=== PATIENT | female | born 1955 | race Caucasian/White ===

== ENCOUNTER 2017-08-31 14:45 | Observation (INO) | payer MEDICARE ==
[2017-08-31 15:39] LABS: Hematocrit 44.1 % (37.0-47.0); Hemoglobin 14.5 gm/dL (12.5-16.0); Mean Cell Volume 91.1 fl (78-100); Mean Corpuscular Hgb Conc 32.9 g/dl (32-36); Neutrophil # 5.8 K/mm3 (1.3-6.0); Neutrophil % 74.2 % (42-75.0); Platelet Count 211 K/mm3 (150-450); Red Blood Count 4.84 M/mm3 (4.2-5.4); Red Cell Distribution Width 13.3 % (11.5-14.0); White Blood Count 7.8 K/mm3 (4.0-10.5)
[2017-08-31 15:44] LABS: Prothrombin Time (Patient) 10.1 Seconds (9.0-11.0)
[2017-08-31 15:49] LABS: INR 1.01 INR (0.90-1.10)
[2017-08-31 15:51] LABS: Albumin * 3.4 gm/dl (3.4-5.0); Anion Gap 10.2 mmol/L (6.8-13.8); BUN/Creatinine Ratio 21.3 (9.0-21.6); Bilirubin, Total 0.4 mg/dL (0.0-1.1); Calcium * 8.8 mg/dL (7.9-10.9); Carbon Dioxide 29.2 mmol/L (24-32.6); Potassium 4.4 mmol/L (3.4-4.6); Total Protein 7.6 gm/dL (6.2-8.2); Troponin I 0.024 ng/ml (0.00-0.10)
--- NOTE | 2017-08-31 16:13 | ERNOTE ---
Headache ER HPI - Narrative Date of Service: 08/31/17 - General Presenting Symptoms: headache, other - speech problems Time Seen by Provider: 08/31/17 15:21 Source: patient Exam Limitations: no limitations - Immun/Allergies/Home Medications Immunizations: IMMUNIZATION HX Immunizations Up to Date Yes History of Influenza Vaccine Yes Hx Pneumococcal Vaccination No Allergies/Adverse Reactions: Allergies Sulfa (Sulfonamide Antibiotics) [Sulfa(Sulfonamide Antibiotics)] Allergy (Severe , Verified 08/31/17 14:59) Hives Home Medications: HOME MEDICATIONS Aspirin [Aspirin Enteric Coated] 325 mg PO DAILY #0 tablet. 03/08/14 [Last Taken Unknown] Cholecalciferol (Vitamin D3) [Vitamin D3] 2,000 unit PO DAILY 09/20/16 [Last Taken Unknown] Glimepiride [Amaryl] 4 mg PO DAILY 09/20/16 [Last Taken Unknown] Metoprolol Tartrate [Lopressor] 100 mg PO HS 09/20/16 [Last Taken Unknown] Omeprazole [Prilosec] 20 mg PO DAILY 09/20/16 [Last Taken Unknown] Sertraline HCl [Zoloft] 100 mg PO DAILY 09/20/16 [Last Taken Unknown] Albuterol Sulfate/Ipratropium [Duoneb 2.5-0.5MG/3ML Soln] 3 ml IH QID PRN #30 nebu 09/22/16 [Last Taken Unknown] LORazepam [Ativan] 0.5 mg PO BID PRN 08/31/17 [Last Taken Unknown] metFORMIN HCL [Metformin HCl ER] 1,000 mg PO BID 08/31/17 [Last Taken Unknown] traMADol HCL [Tramadol HCl] 50 mg PO BID 08/31/17 [Last Taken Unknown] - History of Present Illness Narrative: "trouble talking". Patient presents by ambulance with speech problems. She relates that this morning when she woke up she had a headache and did notice some problems with her speech. She relates this was worse about 9am and has been constant ever since. She has Hx of prior stroke but denies new weakness in her arm or leg. Took her ASA today. She has also been feeling SOB for a day or so. No CP. No abdominal pain. Her Sx are 9 hours old. Not in a therapeutic stroke window. Timing of Headache: cannot pinpoint onset Context Headache: Present: new onset Quality: Present: achy Modifying Factors - (Improves): Reports: other - nothing Modifying Factors - (Worsens): Reports: other - nothing Associated Symptoms: Reports: speech problems. Denies: fever/chills, vomiting, vision changes, loss of consciousness Prior Treament: Denies: recently hospitalized Review of Systems - Review of Systems Constitutional: Absent: fever EYE: Absent: vision changes Respiratory: Present: shortness of breath Cardiology: Absent: chest pain Gastrointestinal/Abdominal: Absent: abdominal pain Genitourinary: Absent: dysuria Musculoskeletal: Present: no symptoms reported Skin: Absent: rash Neurological: Present: See HPI All Other Systems: All systems neg except as marked - Patient's Past Medical History Patient History - Medical: Anxiety, Diabetes Type 2, Depression, Obesity, Other Patient History - Cardiac/Respiratory: Bronchitis, CHF, COPD, CVA/Stroke, Hypertension Patient History - Cancer: No Hx of Cancer Patient History - Surgical Procedures: Total Knee Replacement Patient History - Other: None - Family History Mother Family History - Medical: Diabetes Type 2 Family History - Cardiac/Respiratory: CVA/Stroke, Myocardial Infarction - Social History Abuse History: No History of abuse Psych History: No pertinent hx Smoking Status: Smoker, status unknown - Immunizations Immunizations Up to Date: Yes Hx Pneumococcal Vaccination: No History of Influenza Vaccine: Yes Physical Exam - Physical Exam General Appearance: Present: alert, no apparent distress Head Exam: Present: normal inspection, no evidence of injury Eye Exam: Normal inspection: bilateral, PERRL: bilateral Ears, Nose, Throat: Present: normal ENT inspection Neck: Present: normal inspection Respiratory: Present: no respiratory distress, normal breath sounds, no accessory muscle use, lungs clear Cardiovascular/Chest: Present: regular rate, rhythm, normal peripheral pulses Gastrointestinal/Abdominal: Present: normal bowel sounds, nontender, soft Back Exam: Absent: CVA tenderness (R), CVA tenderness (L) Extremity Exam: Present: other - no deformity Neurological Exam: Present: alert, other - she has mild dysarthria. Minimal left facial droop. I do not find any extremity weakness or dysmetria that is not C/W her chronic problems. No new weakness that I can find. Skin Exam: Present: normal color, warm/dry ED Progress - Results and Orders Patient's Lab Results:: I have reviewed the patient's lab results. - Vital Signs Patient's Vital Signs:: I have reviewed the patient's vital signs. Vital Signs: Vital Signs 08/31/17 08/31/17 08/31/17 14:51 15:11 15:31 Temperature 36.7 C Pulse Rate 71 71 89 Respiratory 16 20 15 Rate Blood Pressure 140/75 143/80 155/80 O2 Sat by Pulse 94 94 Oximetry - EKG EKG: NSR EKG read: Interp. by me EKG Comments: NSR rate 68. non-specific ST/T wave changes, no clear evidence of STEMI - X-Ray X-Ray #1 X-Ray: chest Interpretation: Interp. by me X-ray Comments: I reviewed official radiology report - CT/Ultrasound CT/Ultrasound Narrative: I reviewed official radiology report for HCT - Progress/Reassessment Chief Complaint: Headache Progress Note-Subjective: 08/31/17 16:11 Patient appeaers to have had mild stroke affecting speech primarily. She is on ASA and has taken her ASA. She is not in a therapeutic window as her Sx are 9 hours old. not a tPA candidate. I spoke with Dr Rios who will admit with MRI in the am. Pt agreeable. Departure Clinical Impression: Stroke-like symptom - Departure Disposition: [facility] Condition: Stable Referrals: Stu Rios MD [Primary Care Provider] -
[2017-08-31] MEDS ORDERED: CLOPIDOGREL BISULFATE 75 MG TABLET PO ONE (17:22)
[2017-08-31] MEDS ORDERED: ALBUTEROL SULFATE/IPRATROPIUM 3 ML NEBU IH PRN (17:23)
[2017-08-31] MEDS ORDERED: LORazepam 0.5 MG TABLET PO PRN (17:23)
[2017-08-31] MEDS ORDERED: ROSUVASTATIN CALCIUM 20 MG TABLET PO ONE (18:00)
--- NOTE | 2017-08-31 18:09 | PN ---
Progess Note - Interim Narrative: 08/31/17 17:49 61-year-old WF with a history of HTN with tachycardia, HLD, poorly controlled T2DM, morbid obesity[BMI 42.0], prior stroke[ small focal infarct in RT periventricular area] in 2013 who came to the ER because of inability to speak since earlier this morning. Patient was seen in the office on 08/29/17 and labs from 08/19/17 [LDL 156, cholesterol 239, A1c 10.2% averaging 254 mg/dL] were reviewed w/ her. Patient refuses to go on insulin and cholesterol meds. Patient came to the ER in the afternoon for further evaluation. Speech n has markedly improved and patient will be admitted into observation for monitoring of neurological status. Patient does agree to take Crestor 20 mg and will be started on Lantus 15 units at bedtime. No other neurological defects identified. Normally ambulates with a walker. Patient was examined, reconciliation of medications were done and labs were reviewed. EKG normal sinus rhythm, PRWP. MRI of head, 2-D echo and US carotids have been ordered.
[2017-08-31] MEDS ORDERED: METOPROLOL SUCCINATE 100 MG TABLET.SA PO SCH (21:00)
[2017-08-31] MEDS ORDERED: INSULIN GLARGINE,HUM.REC.ANLOG 100 UNITS/ML VIAL SC ONE (21:00)
[2017-08-31 21:16] LABS: Urine Bilirubin Negative (NEGATIVE); Urine Blood Negative /ul (NEGATIVE); Urine Ketone Negative (NEGATIVE); Urine Nitrite Negative (NEGATIVE); Urine Protein Negative (NEGATIVE); Urine Specific Gravity 1.025 SP.GR. (1.005-1.010); Urine Urobilinogen Normal (NORMAL); Urine pH 5.5 pH (5.0-7.0)
[2017-08-31 21:30] LABS: Urine Appearance Clear; Urine Color Yellow; Urine RBC None Seen /hpf (0-5); Urine WBC 0-5 /hpf (0-5)
[2017-08-31 21:31] LABS: Urine Bacteria TRACE
[2017-08-31] MEDS ORDERED: ACETAMINOPHEN 500 MG TABLET PO ONE (23:05)
[2017-09-01] MEDS: FAMOTIDINE 20 MG TABLET PO SCH ×2 (07:55→17:27)
[2017-09-01] MEDS ORDERED: LOSARTAN POTASSIUM 50 MG TABLET PO SCH (08:00)
[2017-09-01] MEDS ORDERED: CLOPIDOGREL BISULFATE 75 MG TABLET PO SCH (09:00)
[2017-09-01] MEDS ORDERED: SERTRALINE HCL 100 MG TABLET PO SCH (09:00)
[2017-09-01] MEDS ORDERED: ACETAMINOPHEN 325 MG TABLET PO PRN (14:53)
[2017-09-01 15:36] VITALS: BP 160/96
--- NOTE | 2017-09-01 16:56 | DS ---
(1) Left sided lacunar infarction Diagnosis(s): Calero radiata; old lacunar infarcts in the LT thalamus, LT basal ganglia Problem: Acute (2) Hypertension Problem: Chronic Qualifiers: Hypertension type: essential hypertension Qualified Code(s): I10 - Essential (primary) hypertension (3) Diabetes mellitus out of control Diagnosis(s): A1c 10.2[254 mg/dL] 08/12. Problem: Chronic Qualifiers: Diabetes mellitus type: type 2 (4) Hyperlipidemia Diagnosis(s): Chol 239 TG 211 HDL 42 LDL 156[08/19/17]. Problem: Chronic (5) Morbid obesity Diagnosis(s): BMI-42.0 Problem: Chronic Description of Stay: DATE OF ADMISSION: 08/31/2017. DATE OF DISCHARGE: 09/01/2017. DIAGNOSTICS: CT HEAD W/O 08/31/17. 2-D ECHO WITH BUBBLE STUDY 09/01/17. US CAROTIDS 09/01/17. MRI HEAD W/O111/02/16. DISCHARGE SUMMARY: Re Mitchell is a 62-year-old WF with a H/O HTN, HLD, poorly controlled T2 DM, morbid obesity[BMI 42.0], prior stroke in 2013 who woke up with difficulty in talking on 08/31/17. This gradually worsened with occasional aphasia and patient came to ER for evaluation at [address] W/O: 08/31/17: Age-related cortical atrophy and periventricular white matter chronic ischemic changes are present. Intracranial atherosclerotic calcifications noted. Stable likely old lacunar infarcts in the left thalamus and left basal ganglia region. Lateral ventricular prominence seen. No acute intracranial hemorrhage or mass effect. She was seen at approximately 1730 hours when his speech had markedly improved. She had no other neurological deficit. Patient was seen in the office on and labs from 08/19/17 [LDL 156, cholesterol 239, A1c 10.2% averaging 254 mg /dL] were reviewed w/ her. She did not want any intervention at the office visit. Patient did agree to take rosuvastatin, clopidogrel and insulin to lower secondary risk factors for stroke while in the hospital. EKG: NSR, PRWP, no acute changes. Patient was started on clopidogrel 75 mg a day, rosuvastatin 20 mg a day, losartan 50 mg in the morning and Lantus 15 units at bedtime. Glimepiride and aspirin were discontinued. US carotids: Mild to moderate atherosclerotic disease RT greater than LT. No hemodynamically significant stenosis is identified. MRI brain W/O: 09/01/17: Moderate diffuse atrophy, microvascular ischemic changes including remote lacunar infarcts. Acute lacunar infarct within the left calero radiata. Echo results are pending at the time of dictation. Patient is being discharged in a stable condition at approximately 6 PM on 09/01. Greater than 30 minutes was spent with the patient including plan of care, reconciliation of medications, preparing and dictating discharge summary. [ Procedures Performed: none Results and Findings: Laboratory Tests 08/31/17 15:36 WBC 7.8 Hgb 14.5 Hct 44.1 Plt Count 211 08/31/17 15:36 Plasma Sodium 137 Potassium 4.4 Chloride 99 Carbon Dioxide 29.2 BUN 20 Creatinine 0.94 Est GFR (Non-Af Amer) 65 Random Glucose 270 H Calcium Adj for Albumin 9.0 Total Bilirubin 0.4 AST 18 ALT 31 Alkaline Phosphatase 130 Troponin I 0.024 Total Protein 7.6 Albumin 3.4 Discharge Disposition: Home self care Disposition: Home self-care Condition: Undetermined Discharge Activity: Activity as tolerated Discharge Diet: Consistent carbs - protein rich snack at bedtime - azeri yogurt / 2 oz nuts, cheese and crackers/slice bread w/peanut butter., High Fiber Referrals: Stu Rios MD [Primary Care Provider] - Problem Oriented Discharge Instructions to Patient/Family: Insulin Storage and Care, Insulin Treatment for Diabetes, Stroke Prevention, [id number], How and Where to Give Subcutaneous Insulin Injections, Adult, Blood Glucose Monitoring, Adult Additional Patient Instructions (free text): MEDS DISCONTINUED/DOSES CHANGED: Aspirin. Glimepiride. Omeprazole. NEW MEDICATIONS: Clopidogrel 75 mg daily. Famotidine 20 mg twice a day 30 minutes before meals[instead of omeprazole]. Lantus SubQ 25 units at bedtime. Rosuvastatin 20 mg daily. Losartan 50 mg daily in AM. Take insulin approximately at the same time in the evening. Document blood sugars in a staggered fashion: 1st day breakfast and supper; 2nd day: Lunch and bedtime. Documented BP once a day after being seated for 10 minutes and without caffeine for one hour. Tramadol can be alternated with Tylenol every 6H for pain. Try to obtain as much exercise as possible. Appt with Dr. Ramirez on 09/07/17 +/-2days. Prescriptions (Any new or edited meds): Clopidogrel Bisulfate [Plavix] 75 mg PO DAILY #30 tablet Famotidine [Pepcid] 20 mg PO BIDAC #60 tablet Insulin Glargine,Hum.rec.anlog [Lantus] 25 units SC HS #1 vial Losartan Potassium [Cozaar] 50 mg PO DAILY #30 tablet Rosuvastatin Calcium 20 mg PO DAILY #30 tablet Complete Home Medications List: Complete Home Medication List: Cholecalciferol (Vitamin D3) [Vitamin D3] 2,000 unit PO DAILY 09/20/16 Sertraline HCl [Zoloft] 100 mg PO DAILY 09/20/16 Albuterol Sulfate/Ipratropium [Duoneb 2.5-0.5MG/3ML Soln] 3 ml IH QID PRN #30 nebu 09/22/16 LORazepam [Ativan] 0.5 mg PO BID PRN 08/31/17 metFORMIN HCL [Metformin HCl ER] 1,000 mg PO BIDWM 08/31/17 traMADol HCL [Tramadol HCl] 50 mg PO BID PRN 08/31/17 Acetaminophen [Tylenol] 650 mg PO Q6H PRN tablet 09/01/17 Clopidogrel Bisulfate [Plavix] 75 mg PO DAILY #30 tablet 09/01/17 Famotidine [Pepcid] 20 mg PO BIDAC #60 tablet 09/01/17 Insulin Glargine,Hum.rec.anlog [Lantus] 25 units SC HS #1 vial 09/01/17 Losartan Potassium [Cozaar] 50 mg PO DAILY #30 tablet 09/01/17 Metoprolol Succinate [Toprol Xl] 100 mg PO DAILY@2100 tablet.sa 09/01/17 Rosuvastatin Calcium 20 mg PO DAILY #30 tablet 09/01/17
--- NOTE | 2017-09-01 18:20 | HP ---
Chief Complaint - Chief Complaint Date of Service: 08/31/17 Time of Service: 06:00 Chief Complaint: difficulty in speech since waking up. History of Present Illness: Re Mitchell is a 62-year-old WF with a history of HTN, HLD, DM, prior stroke in 2013 who came into the ER at approximately 1600 hrs. as she woke up in the morning with difficulty in expressing herself and occasionally aphasia. Head CT without contrast in ER showed no acute pathology. She was admitted into observation for further evaluation. She had new other neurological deficits and when seen at approximately 1730 hrs. her speech was much better. - Patient's Past Medical History Additional info: PAST MEDICAL HISTORY: HTN, HLD, poorly controlled T2 DM, anxiety and depression, intermittent asthma [ on neb] treatments Osteoarthritis with LT knee replacement. Morbid obesity[ BMI 42.0]. Patient History - Cancer: No Hx of Cancer Patient History - Surgical Procedures: Total Knee Replacement Patient History - Other: None LMP (females 10-50): Menopausal - Family History Mother Family History - Medical: - 71ovarian cancer, T2 DM, [place]. Father Family History - Medical: - 66- Parkinson's disease, CHF. - Social History Living Situations: home Abuse History: No History of abuse Psych History: Hx of Anxiety, Hx of Depression, Current tx/ever been on anti- depressants or anti-anxiety meds Smoking Status: Never smoker Have you smoked in the past 12 months: No Do you dip or chew tobacco: No Alcohol Use: none Drug Use: none - Immunizations Immunizations Up to Date: No Hx Pneumococcal Vaccination: No History of Influenza Vaccine: Yes Review Of Systems (GEN) - Review of Systems Respiratory: Present: Shortness of Breath - chronic Cardiac: Absent: Chest Pain, Edema Neurological: Present: Anxiety, Depressed Immunizations: IMMUNIZATION HX Immunizations Up to Date Yes History of Influenza Vaccine Yes Hx Pneumococcal Vaccination No Allergies/Adverse Reactions: Allergies Allergy/AdvReac Type Severity Reaction Status Date / Time Sulfa (Sulfonamide Allergy Severe Hives Verified 08/31/17 17:52 Antibiotics) [Sulfa(Sulfonamide Antibiotics)] pravastatin AdvReac Intermediate Other Verified 08/31/17 17:52 escitalopram [From Lexapro] AdvReac Mild Other Verified 08/31/17 17:52 zolpidem [From Ambien] AdvReac Mild Other Verified 08/31/17 17:52 trazodone AdvReac Unknown Other Verified 08/31/17 17:52 Home Medications: HOME MEDICATIONS Cholecalciferol (Vitamin D3) [Vitamin D3] 2,000 unit PO DAILY 09/20/16 [Last Taken Unknown] Sertraline HCl [Zoloft] 100 mg PO DAILY 09/20/16 [Last Taken Unknown] Albuterol Sulfate/Ipratropium [Duoneb 2.5-0.5MG/3ML Soln] 3 ml IH QID PRN #30 nebu 09/22/16 [Last Taken Unknown] LORazepam [Ativan] 0.5 mg PO BID PRN 08/31/17 [Last Taken Unknown] metFORMIN HCL [Metformin HCl ER] 1,000 mg PO BIDWM 08/31/17 [Last Taken Unknown] traMADol HCL [Tramadol HCl] 50 mg PO BID PRN 08/31/17 [Last Taken Unknown] Acetaminophen [Tylenol] 650 mg PO Q6H PRN tablet 09/01/17 [Last Taken Unknown] Metoprolol Succinate [Toprol Xl] 100 mg PO DAILY@2100 tablet.sa 09/01/17 [Last Taken Unknown] Aspirin 325 mg PO DAILY 09/02/17 [Last Taken Unknown] Glimepiride [Amaryl] 2 mg PO DAILY@0530 09/02/17 [Last Taken Unknown] Glimepiride [Amaryl] 4 mg PO DAILY@0700 09/02/17 [Last Taken Unknown] Omeprazole 40 mg PO DAILY 09/02/17 [Last Taken Unknown] Exam - Exam Vital Signs: Vital Signs - Last Taken Temp 36.5 C 09/01/17 15:00 Pulse 74 09/01/17 15:00 Resp 18 09/01/17 15:00 BP 160/96 09/01/17 15:00 Pulse Ox 94 09/01/17 15:00 Constitutional: Present: Middle aged, Morbidly obese, Looks Older than stated age - with occassional difficulty in speech, uses walker. ENT Exam: Present: dry mucous membranes Eye Exam: bilateral eye: PERRL, EOMI Neck: Present: supple, trachea midline Respiratory: Present: normal breath sounds, no accessory muscle use Cardiovascular/Chest: Present: regular rate, rhythm. Absent: tachycardia Peripheral Pulses: carotid (L): 1+, femoral (R): 1+ Abdomen: Present: Normal bowel sounds, nontender, nondistended, obese Extremity: Present: normal inspection - trace edema. Skin Exam: Present: normal color, warm/dry Neurologic: Absent: no motor/sensory deficits Appearance: Present: appropriate appearance, appropriate insight, neat Eye contact: Present: cooperative, good eye contact, normal speech Diagnostic Studies: Laboratory Tests 08/31/17 15:36 WBC 7.8 Hgb 14.5 Hct 44.1 Plt Count 211 08/31/17 15:36 Plasma Sodium 137 Potassium 4.4 Chloride 99 Carbon Dioxide 29.2 BUN 20 Creatinine 0.94 Est GFR (Non-Af Amer) 65 Random Glucose 270 H Calcium Adj for Albumin 9.0 Total Bilirubin 0.4 AST 18 ALT 31 Alkaline Phosphatase 130 Troponin I 0.024 Total Protein 7.[address] W/O: 08/31/17: Impression: Age-related cortical atrophy and periventricular white matter chronic ischemic changes are present. Intracranial atherosclerotic calcifications noted. Stable likely old lacunar infarcts in the left thalamus and left basal ganglia region. Lateral ventricular prominence seen. No acute intracranial hemorrhage or mass effect. Assessment/Plan - Narrative Narrative: 1. Difficulty in speech/ Aphasia: Initial CT negative for acute process Start patient on clopidogrel 75 mg a day, rosuvastatin 20 mg a day. Obtain MRI brain w/o in AM, US carotids and echo. 2. Hypertension with tachycardia: BP elevated at 160/90. Add losartan 50 mg in a.m. Continue metoprolol ER 100 mg at night. 3. Hyperlipidemia: Continue rosuvastatin 20 mg daily. 4. Uncontrolled T2 DM. Continue metformin ER 500 mg 2 tabs twice a day with meals. DC glimepiride. Start Lantus 15 units daily at bedtime increasing accordingly. 5. Morbid obesity: BMI 42.0; may need sleep studies - Assessment/Plan (1) TIA/stroke Problem: Acute (2) Morbid obesity Problem: Chronic (3) Hypertension Problem: Chronic Qualifiers: Hypertension type: essential hypertension Qualified Code(s): I10 - Essential (primary) hypertension (4) Diabetes mellitus out of control Problem: Chronic Qualifiers: Diabetes mellitus type: type 2 (5) Hyperlipidemia Problem: Chronic
--- NOTE | 2017-09-02 12:49 | ECHO ---
This report is available in the EMR
== END 2017-09-01 18:19 | disposition home or self-care (01) ==
LOC: ER 14:45 → MS 16:12
PROVIDERS: ADMIT Internal Medicine; ATTEND Internal Medicine
DX: I63.9 Cerebral infarction, unspecified (principal); R47.01 Aphasia; I10 Essential (primary) hypertension; E11.65 Type 2 diabetes mellitus with hyperglycemia; E78.5 Hyperlipidemia, unspecified; E66.01 Morbid (severe) obesity due to excess calories; Z68.41 Body mass index [BMI] 40.0-44.9, adult
CPT/HCPCS: 36415; 70450; 70553; 71010; 80053; 81001; 84484; 85025; 85610; 92522; 93005; 93306; 93880; 96372; 97116; 97161; 97166; 99285; G0378; G8978; G8979; G8984; G8985; G8986

== ENCOUNTER 2019-02-03 05:22 | Observation (INO) ==
[2019-02-03] MEDS ORDERED: ASPIRIN 81 MG TAB.CHEW ONE (05:52)
[2019-02-03] MEDS ORDERED: NITROGLYCERIN 0.4 MG/TAB BTL SL ONE (05:56)
[2019-02-03] MEDS ORDERED: NITROGLYCERIN 1 INCH PACKET TD ONE (05:56)
--- NOTE | 2019-02-03 05:56 | ERNOTE ---
Chest Pain/Cardiac HPI Date of Service: 02/03/19 Chief Complaint: Chest Pain Time Seen by Provider: 02/03/19 05:35 Source: patient Immunizations: IMMUNIZATION HX Immunizations Up to Date Yes History of Influenza Vaccine No Hx Pneumococcal Vaccination No Allergies/Adverse Reactions: Allergies Sulfa (Sulfonamide Antibiotics) [Sulfa(Sulfonamide Antibiotics)] Allergy (Severe, Verified 02/03/19 05:36) Hives pravastatin Adverse Reaction (Intermediate, Verified 02/03/19 05:36) Other Palpitations escitalopram [From Lexapro] Adverse Reaction (Mild, Verified 02/03/19 05:36) Other Nightmares zolpidem [From Ambien] Adverse Reaction (Mild, Verified 02/03/19 05:36) Other Doesn't like the way it makes her feel trazodone Adverse Reaction (Unknown, Verified 02/03/19 05:36) Other Not effective Home Medications: HOME MEDICATIONS Albuterol Sulfate/Ipratropium [Duoneb 2.5-0.5MG/3ML Soln] 3 ml IH QID PRN #30 nebu 09/22/16 [Last Taken Unknown] cholecalciferol (vitamin D3) 2,000 unit capsule 5,000 unit PO DAILY cap 05/17/18 [Last Taken Unknown] acetaminophen 500 mg capsule 500 mg PO Q6H PRN #60 cap 05/30/18 [Last Taken Unknown] insulin syringe U-100 with needle 1/2 mL 31 gauge x 15/64" See Dose Instructions .ROUTE .MEDSUPPLY #100 ea 07/10/18 [Last Taken Unknown] pen needle, diabetic 32 gauge x 1/4" See Dose Instructions .ROUTE .MEDSUPPLY #100 ea 07/13/18 [Last Taken Unknown] insulin glargine (U-100) 100 unit/mL (3 mL) subcutaneous pen 35 unit SUB-Q DAILY #15 ml 09/29/18 [Last Taken Unknown] sertraline 100 mg tablet 100 mg PO DAILY #90 tab 10/30/18 [Last Taken Unknown] blood sugar diagnostic strips See Dose Instructions .ROUTE .MEDSUPPLY #100 ea 12/19/18 [Last Taken Unknown] liraglutide 0.6 mg/0.1 mL (18 mg/3 mL) subcutaneous pen injector 1.8 mg SUB-Q DAILY #9 ml 12/19/18 [Last Taken Unknown] lisinopril 10 mg tablet 10 mg PO DAILY #90 tab 12/19/18 [Last Taken Unknown] Aspirin 325 mg PO DAILY 02/03/19 [Last Taken Unknown] Clopidogrel Bisulfate [Plavix] 75 mg PO DAILY 02/03/19 [Last Taken Unknown] Diphenhydramine HCl 25 mg PO HS PRN 02/03/19 [Last Taken Unknown] Insulin Lispro [Humalog] 1 units SQ AC 02/03/19 [Last Taken Unknown] Magnesium Hydroxide [Milk Of Magnesia] 30 ml PO DAILY PRN 02/03/19 [Last Taken Unknown] Metoprolol Succinate [Toprol Xl] 100 mg PO DAILY 02/03/19 [Last Taken Unknown] metFORMIN HCL [Metformin HCl] 1,000 mg PO BID 02/03/19 [Last Taken Unknown] Narrative: The patient is an extremely poor historian and does not seem to understand many of the questions which are asked. The story that have gotten at this is a 63-year-old female who was seen in this emergency department a couple of weeks ago for chest pain and shortness of breath. The patient apparently was found to have a non-ST elevation [facility] and was transferred to [facility]. No catheterization was performed, medical management was indicated. The patient says that her chest pain went away however approximately 1 week ago the pain came back. The patient was discharged to the [place] [facility] yesterday. The martín ent did not tell anyone that the chest pain had come back. She has been sitting at the [place] [facility] overnight and been having increasing chest discomfort she describes as an aching pain along with pain in her jaw on the left side as well as her left arm. She says she feels a little short of breath but nothing like when she was seen in the hospital a couple of weeks ago. She got a little bit warm but no diaphoresis. No nausea or vomiting. No radiation of pain to the abdomen or back. She has been taking her Plavix. She apparently did not get aspirin in route to the hospital by EMS because "her teeth are bad "the patient also reports that she has occasional "electric shocks of pain which are sharp. These last for only a second or 2. Nothing makes the pain worse or better. It seems to been gradually worsening over the last week. No fever or chills no coughing no urinary symptoms no diarrhea nausea vomiting or other complaints Review of Systems - Review of Systems Constitutional: Present: no symptoms reported EYE: Present: no symptoms reported ENT: Present: no symptoms reported Respiratory: Present: shortness of breath Cardiology: Present: chest pain Gastrointestinal/Abdominal: Present: no symptoms reported Genitourinary: Present: no symptoms reported Musculoskeletal: Present: See HPI, other Neurological: Present: no symptoms reported Endocrine: Present: no symptoms reported Hematologic/Lymphatic: Present: no symptoms reported Psych: Present: no symptoms reported Medical History (Updated 02/03/19 @ 06:53 by Jose Antonio Oneal MD) Osteoarthritis (Chronic) Onset Date: Unknown TKA-LT Morbid obesity with BMI of 40.0-44.9, adult (Chronic) Onset Date: ~08/2017 Hypertension (Chronic) Onset Date: Unknown Diastolic heart failure, mild LVH - (Echo - 02/2014) Hyperlipidemia (Chronic) Onset Date: Unknown Diabetes 1.5, managed as type 2 (Chronic) Onset Date: Unknown CVA (cerebral vascular accident) (Chronic) Onset Date: Unknown small focal infarct in RT periventricular matter (2013) and LT sided weakness. Lt lacunar infarct (09/11) Anxiety and depression (Chronic) Onset Date: Unknown Influenza vaccine refused does not receive. 08/24/18 Surgical History: Surgical History (Updated 12/19/18 @ 16:42 by Cheyenne Gregg MD) Total knee replacement status (Resolved) Onset Date: Unknown Left Family History: Family History (Updated 05/17/18 @ 08:20 by Cee Bray RN) Father , age 66 CHF (congestive heart failure) Parkinsons disease Mother , age 70 Cancer Ovarian Daughter Cancer Thyroid Social History: Preferred Language Senegalese Smoking Status Never smoker Abuse History No History of abuse Psych History Hx of Anxiety,Hx of Depression,Currently on Meds Alcohol Use none Drug Use none (Last Updated 12/28/18 @ 11:47 by ALEX King) No Social History Section defined Physical Exam - Physical Exam General Appearance: Present: wd/wn, alert, no apparent distress Head Exam: Present: normal inspection, no evidence of injury Eye Exam: Normal inspection: bilateral, PERRL: bilateral, EOMI: bilateral Ears, Nose, Throat: Present: normal ENT inspection, other Neck: Present: normal inspection, nontender Respiratory: Present: no respiratory distress - Extremely poor dentition, normal breath sounds, lungs clear Cardiovascular/Chest: Present: regular rate, rhythm, no murmur Gastrointestinal/Abdominal: Present: normal bowel sounds, nontender, nondistended, soft Back Exam: Present: normal range of motion Extremity Exam: Present: normal inspection, non-tender, no edema Neurological Exam: Present: alert, oriented, normal mood/affect, no motor/sensory deficits Skin Exam: Present: normal color, warm/dry Lymphatic Exam: Present: no adenopathy Progress - Results and Orders Patient's Lab Results:: I have reviewed the patient's lab results. - Vital Signs Patient's Vital Signs:: I have reviewed the patient's vital signs. Vital Signs: Vital Signs 02/03/19 05:29 Temperature 36.5 C Pulse Rate 97 Respiratory Rate 18 Blood Pressure 123/94 H O2 Sat by Pulse Oximetry 93 - EKG EKG #1 EKG: NSR EKG read: Interp. by me EKG Comments: EKG demonstrates sinus rhythm ventricular rate of 100. Angwin is rightward at 99 degrees. QTc is prolonged at 500. Patient has interventricular conduction delay with QRS duration of 149. Does not appear to be either a right or left bundle branch block. Patient does not have any definite ST elevation however there is J-point elevation in V2 and V3 as well as V1. T waves in V6 are inverted as are T waves inferiorly. This may be related to the interventricular conduction delay - X-Ray X-Ray #1 X-Ray: chest Interpretation: Interp. by me X-ray Comments: No acute cardiopulmonary disease - Progress/Reassessment Chief Complaint: Chest Pain Progress:: Improved Progress Note-Subjective: 02/03/19 06:53 Pain went from [id number]. Now his Nitropaste is better but not gone. Will give morphine Departure Clinical Impression: Chest pain Qualifiers: Chest pain type: unspecified Qualified Code(s): R07.9 - Chest pain, unspecified - Departure Disposition: Still a patient Condition: Fair Referrals: Cheyenne Gregg MD [Primary Care Provider] -
[2019-02-03] MEDS: ASPIRIN 81 MG TAB.CHEW PO ONE ×2 (05:57)
[2019-02-03 06:24] LABS: Hematocrit 39.6 % (37.0-47.0); Hemoglobin 12.5 gm/dL (12.5-16.0); Mean Cell Volume 93.4 fl (78-100); Mean Corpuscular Hemoglobin 29.5 pg (27-31); Mean Corpuscular Hgb Conc 31.6 g/dl (32-36); Mean Platelet Volume 10.5 fl (8-12.5); Neutrophil # 6.1 K/mm3 (1.3-6.0); Neutrophil % 74.4 % (42-75.0); Platelet Count 280 K/mm3 (150-450); Red Blood Count 4.24 M/mm3 (4.2-5.4); Red Cell Distribution Width 13.6 % (11.5-14.0); White Blood Count 8.2 K/mm3 (4.0-10.5)
[2019-02-03 06:48] LABS: Albumin * 3.1 gm/dl (3.4-5.0); BUN/Creatinine Ratio 27.5 (9.0-21.6); Bilirubin, Total 0.5 mg/dL (0.0-1.1); CKMB 0.6 ng/mL (0.0-9.0); Ca. Corrected For Albumin 9.9 mg/dL (8.4-10.2); Calcium * 9.5 mg/dL (7.9-10.9); Carbon Dioxide 31.4 mmol/L (24-32.6); Potassium 4.4 mmol/L (3.4-4.6); Total Protein 7.4 gm/dL (6.2-8.2); Troponin I 0.093 ng/mL (0.00-0.10)
[2019-02-03] MEDS ORDERED: MORPHINE SULFATE 2 MG/ML DISP.SYRIN IV ONE (06:54)
[2019-02-03] MEDS ORDERED: MAGNESIUM HYDROXIDE 30 ML UDC PO PRN (13:33)
[2019-02-03] MEDS ORDERED: NITROGLYCERIN 0.4 MG/TAB BTL SL PRN (13:33)
[2019-02-03] MEDS ORDERED: ALBUTEROL SULFATE/IPRATROPIUM 3 ML NEBU IH PRN (13:33)
[2019-02-03] MEDS ORDERED: diphenhydrAMINE HCL 25 MG CAPSULE PO PRN (13:33)
[2019-02-03] MEDS ORDERED: LISINOPRIL 20 MG TABLET PO SCH (13:45)
[2019-02-03] MEDS: CLOPIDOGREL BISULFATE 75 MG TABLET PO SCH (14:02)
[2019-02-03] MEDS: FUROSEMIDE 20 MG TABLET PO SCH (14:02)
[2019-02-03] MEDS: SERTRALINE HCL 100 MG TABLET PO SCH (14:03)
--- NOTE | 2019-02-03 14:19 | HP ---
Chief Complaint - Chief Complaint Date of Service: 02/03/19 Time of Service: 13:59 Chief Complaint: I had chest pain this morning and anxiety. History of Present Illness: 63-year-old female with past medical history of type 2 diabetes, hypertension, hyperlipidemia, coronary artery disease, with recent non-STEMI, morbid obesity, old CVA, depression, anxiety disorder, was seen in our ER this morning due to retrosternal chest pain accompanied by anxiety. Patient was hospitalized last week at [facility] for a non-STEMI and was discharged to [facility] this past . After a thorough cardiac evaluation the cardiology team at [place] decided to treat patient with just medical management with Plavix aspirin and statin. Patient was discharged with her medications and was sent to the senior care where she is to receive rehab. Patient has a high fall risk and has multiple falls recently for which senior care placement was recommended. However she is not in agreement with the decision and is currently debating going back to the senior care. In the meantime cardiac troponins during this hospitalizations are are mildly elevated but on a downward trend, this could be a residual effect from her non- STEMI. As a precaution a third troponin was ordered to be repeated this evening. For now patient reports complete resolution of her chest pain she denies any nausea or shortness of breath or any other symptoms. She was given reassurance that she was discharged from [place] by the duralumin metalworker with proper medications for her heart and that if she were to have chest discomfort again she should notify nursing staff and nitroglycerin will be given to her. Patient also has an EKG that is abnormal but unchanged from her previous social work changes might be old changes. We will continue to monitor her closely. Medical History (Updated 02/03/19 @ 07:47 by Kia Rivero RN) Osteoarthritis (Chronic) Onset Date: Unknown TKA-LT Morbid obesity with BMI of 40.0-44.9, adult (Chronic) Onset Date: ~08/2017 Hypertension (Chronic) Onset Date: Unknown Diastolic heart failure, mild LVH - (Echo - 02/2014) Hyperlipidemia (Chronic) Onset Date: Unknown Diabetes 1.5, managed as type 2 (Chronic) Onset Date: Unknown CVA (cerebral vascular accident) (Chronic) Onset Date: Unknown small focal infarct in RT periventricular matter (2013) and LT sided weakness. Lt lacunar infarct (09/11) Anxiety and depression (Chronic) Onset Date: Unknown CHF (congestive heart failure) Hearing loss in left ear Myocardial infarction Influenza vaccine refused does not receive. 08/24/18 Surgical History: Surgical History (Updated 12/19/18 @ 16:42 by Cheyenne Gregg MD) Total knee replacement status (Resolved) Onset Date: Unknown Left Family History: Family History (Updated 05/17/18 @ 08:20 by Cee Bray RN) Father , age 66 CHF (congestive heart failure) Parkinsons disease Mother , age 70 Cancer Ovarian Daughter Cancer Thyroid Social History: Patient Lives/Resources [facility] Utilized Preferred Language Uzbek Do you have any hoahaoism or No cultural preference? Smoking Status Never smoker Have you smoked in the past 12 No months Abuse History No History of abuse Psych History Hx of Anxiety,Hx of Depression,Currently on Meds Alcohol Use none Drug Use none (Last Updated 12/28/18 @ 11:47 by ALEX King) No Social History Section defined Peds Patient Hx - Developmental: No Pertinent Hx Peds Patient Hx - Medical: No Pertinent Hx Peds Patient Hx - Cardiac/Respiratory: No Pertinent Hx Peds Patient Hx - Surgical: No Surgical History Patient History - Cancer: No Hx of Cancer Review Of Systems (GEN) - Review of Systems Generalized/Overall Review: Present: No Symptoms Reported EENTM: Present: No Symptoms Reported Respiratory: Present: No Symptoms Reported Cardiac: Present: Chest Pain Abdominal: Present: No Symptoms Reported Genitourinary: Present: No Symptoms Reported Musculoskeletal: Present: No Symptoms Reported Neurological: Present: Anxiety Skin: Present: No Symptoms Reported Endocrine: Present: No Symptoms Reported Immunizations: IMMUNIZATION HX Immunizations Up to Date Yes History of Influenza Vaccine No Hx Pneumococcal Vaccination No Allergies/Adverse Reactions: Allergies Allergy/AdvReac Type Severity Reaction Status Date / Time Sulfa (Sulfonamide Allergy Severe Hives Verified 02/03/19 07:30 Antibiotics) [Sulfa(Sulfonamide Antibiotics)] pravastatin AdvReac Intermediate Other Verified 02/03/19 07:30 escitalopram [From Lexapro] AdvReac Mild Other Verified 02/03/19 07:30 zolpidem [From Ambien] AdvReac Mild Other Verified 02/03/19 07:30 trazodone AdvReac Unknown Other Verified 02/03/19 07:30 Home Medications: HOME MEDICATIONS Albuterol Sulfate/Ipratropium [Duoneb 2.5-0.5MG/3ML Soln] 3 ml IH QID PRN #30 nebu 09/22/16 [Last Taken Unknown] cholecalciferol (vitamin D3) 2,000 unit capsule 2,000 unit PO DAILY cap 05/17/18 [Last Taken Unknown] acetaminophen 500 mg capsule 500 mg PO Q6H PRN #60 cap 05/30/18 [Last Taken Unknown] insulin syringe U-100 with needle 1/2 mL 31 gauge x " See Dose Instructions .ROUTE .MEDSUPPLY #100 ea 07/10/18 [Last Taken Unknown] pen needle, diabetic 32 gauge x 09/29" See Dose Instructions .ROUTE .MEDSUPPLY #100 ea 07/13/18 [Last Taken Unknown] sertraline 100 mg tablet 100 mg PO DAILY #90 tab 10/30/18 [Last Taken Unknown] blood sugar diagnostic strips See Dose Instructions .ROUTE .MEDSUPPLY #100 ea 12/19/18 [Last Taken Unknown] Acetaminophen with Codeine [Acetaminophen-Cod #2 Tablet] 1 ea PO Q4H PRN 02/03/19 [Last Taken Unknown] Aspirin 325 mg PO DAILY 02/03/19 [Last Taken Unknown] Clopidogrel Bisulfate [Plavix] 75 mg PO DAILY 02/03/19 [Last Taken Unknown] Diphenhydramine HCl 25 mg PO HS PRN 02/03/19 [Last Taken Unknown] Furosemide [Lasix] 20 mg PO DAILY 02/03/19 [Last Taken Unknown] Insulin Glargine,Hum.rec.anlog [Lantus Solostar U-100 Insulin] 35 unit SUB-Q HS 02/03/19 [Last Taken Unknown] Insulin Lispro [Humalog] 1 units SQ ACHS 02/03/19 [Last Taken Unknown] LORazepam [Ativan] 0.5 mg PO TID PRN 02/03/19 [Last Taken Unknown] Liraglutide [Victoza 3-Clay] 1.8 mg SUB-Q 1300 02/03/19 [Last Taken Unknown] Lisinopril [Prinivil] 20 mg PO DAILY 02/03/19 [Last Taken Unknown] Magnesium Hydroxide [Milk Of Magnesia] 30 ml PO DAILY PRN 02/03/19 [Last Taken Unknown] Metoprolol Succinate [Toprol Xl] 125 mg PO DAILY 02/03/19 [Last Taken Unknown] Nitroglycerin 0.4 mg SUBLINGUAL PRN PRN 02/03/19 [Last Taken Unknown] Sertraline HCl [Zoloft] 100 mg PO DAILY 02/03/19 [Last Taken Unknown] metFORMIN HCL [Metformin HCl] 1,000 mg PO BID 02/03/19 [Last Taken Unknown] Exam - Exam Vital Signs: Vital Signs - Last Taken Temp 36.0 C 02/03/19 13:34 Pulse 105 H 02/03/19 13:34 Resp 20 02/03/19 13:34 BP 151/75 H 02/03/19 13:34 Pulse Ox 93 02/03/19 13:34 Constitutional: Present: Alert, Oriented x3, Cooperative, Well developed, Well nourished, No distress ENT Exam: Present: normal ENT inspection, hearing grossly normal, pharynx normal, TMs normal Eye Exam: bilateral eye: normal inspection, PERRL, EOMI Neck: Present: non-tender, full range of motion, supple, normal inspection, trachea midline Back Exam: Present: normal inspection, no CVA tenderness, no vertebral tenderness Breasts: Present: Exam deferred Respiratory: Present: chest non-tender, lungs clear, normal breath sounds, no respiratory distress, no accessory muscle use Cardiovascular/Chest: Present: normal peripheral pulses, regular rate, rhythm, no chest tenderness, no edema, no gallop, no JVD, no murmur, no rub Peripheral Pulses: carotid (R): 4+, carotid (L): 4+, femoral (R): 4+, femoral (L): 4+, dorsalis-pedis (R): 4+, dorsalis-pedis (L): 4+ Abdomen: Present: Normal bowel sounds, soft, nontender, nondistended, no rebound tenderness, no hepatospenomegaly, no masses, obese /Rectal: Present: Exam deferred Extremity: Present: normal range of motion, non-tender, normal inspection, no pedal edema, no calf tenderness, normal capillary refill Skin Exam: Present: normal color, warm/dry, no cyanosis Lymphatic: Present: no adenopathy Neurologic: Present: recruiting and selection consultant II-XII nml as tested, normal cerebellar test, no motor/sensory deficits, alert, normal mood/affect, oriented x 3 Appearance: Present: appropriate appearance, appropriate insight, neat, no memory impairment Eye contact: Present: cooperative, good eye contact, normal speech Thoughts: Present: normal thought pattern, no apparent hallucination Diagnostic Studies: Abnormal Lab Results 02/03/19 02/03/19 Range/Units 06:20 06:20 MCHC 31.6 L (32-36) g/dl Lymphocytes % 16.1 L (20-51) % Neutrophils # 6.1 H (1.3-6.0) K/mm3 Lymphocytes # 1.32 L (1.5-3.5) k/mm3 BUN 25 H (3-23) mg/dL BUN/Creatinine Ratio 27.5 H (9.0-21.6) Random Glucose 163 H (70-110) mg/dL Albumin 3.1 L (3.4-5.0) gm/dl Laboratory Results WBC 8.2 K/mm3 (4.0-10.5) 02/03/19 06:20 RBC 4.24 M/mm3 (4.2-5.4) 02/03/19 06:20 Hgb 12.5 gm/dL (12.5-16.0) 02/03/19 06:20 Hct 39.6 % (37.0-47.0) 02/03/19 06:20 MCV 93.4 fl (78-100) 02/03/19 06:20 MCH 29.5 pg (27-31) 02/03/19 06:20 MCHC 31.6 g/dl (32-36) L 02/03/19 06:20 RDW 13.6 % (11.5-14.0) 02/03/19 06:20 Plt Count 280 K/mm3 (150-450) 02/03/19 06:20 MPV 10.5 fl (8-12.5) 02/03/19 06:20 Immature Gran % (Auto) 0.40 % (0.001-0.429) 02/03/19 06:20 Immature Gran # (Auto) 0.03 K/mm3 (0.000-0.0310) 02/03/19 06:20 74.4 % (42-75.0) 02/03/19 06:20 16.1 % (20-51) L 02/03/19 06:20 6.2 % (0.0-9) 02/03/19 06:20 2.3 % (0.0-3.0) 02/03/19 06:20 0.6 % (0.0-1.0) 02/03/19 06:20 Nucleated RBC % 0.0 k/mm3 (0-1) 02/03/19 06:20 6.1 K/mm3 (1.3-6.0) H 02/03/19 06:20 1.32 k/mm3 (1.5-3.5) L 02/03/19 06:20 0.5 k/mm3 (0.0-1.0) 02/03/19 06:20 0.2 k/mm3 (0.0-0.7) 02/03/19 06:20 Absolute Basophils 0.1 k/mm3 (0.0-0.1) 02/03/19 06:20 Sodium 136 mmol/L (132-142) 02/03/19 06:20 137 mmol/L (130-142) 02/03/19 06:20 Potassium 4.4 mmol/L (3.4-4.6) 02/03/19 06:20 Chloride 99 mmol/L (97-106) 02/03/19 06:20 Carbon Dioxide 31.4 mmol/L (24-32.6) 02/03/19 06:20 10.0 mmol/L (6.8-13.8) 02/03/19 06:20 BUN 25 mg/dL (3-23) H 02/03/19 06:20 0.91 mg/dL (0.4-1.4) 02/03/19 06:20 Est GFR (Non-Af Amer) 67 mL/min (60-130) D 02/03/19 06:20 27.5 (9.0-21.6) H 02/03/19 06:20 163 mg/dL (70-110) H 02/03/19 06:20 Calcium 9.5 mg/dL (7.9-10.9) 02/03/19 06:20 Calcium Adj for Albumin 9.9 mg/dL (8.4-10.2) 02/03/19 06:20 0.5 mg/dL (0.0-1.1) 02/03/19 06:20 AST 19 U/L (0-48) 02/03/19 06:20 ALT 32 U/L (19-67) 02/03/19 06:20 104 U/L (50-170) 02/03/19 06:20 CK-MB (CK-2) 0.6 ng/mL (0.0-9.0) 02/03/19 06:20 0.072 ng/mL (0.00-0.10) 02/03/19 12:25 7.4 gm/dL (6.2-8.2) 02/03/19 06:20 3.1 gm/dl (3.4-5.0) L 02/03/19 06:20 Assessment/Plan - Narrative Narrative: We will continue to treat patient with aspirin, Plavix, statins, beta-sorin, and her other routine meds as well as anxiolytics on a as needed basis. Patient has been placed on telemetry and third repeat cardiac troponin is pending. We will follow-up with results. - Assessment/Plan (1) Ruled out for myocardial infarction Problem: Acute (2) Chest pain due to CAD Problem: Acute (3) Old non-ST elevation myocardial infarction (NSTEMI) Problem: Resolved (4) Diabetes 1.5, managed as type 2 Problem: Chronic (5) HTN (hypertension) Problem: Chronic (6) Anxiety Problem: Chronic
[2019-02-03] MEDS: LORazepam 0.5 MG TABLET PO PRN ×2 (15:12→23:42)
[2019-02-03] MEDS ORDERED: INSULIN LISPRO 100 UNITS/ML VIAL SC SCH (17:00)
[2019-02-03] MEDS: INSULIN LISPRO 100 UNITS/ML VIAL SC SCH ×2 (17:10→21:43)
[2019-02-03] MEDS: ACETAMINOPHEN 500 MG TABLET PO PRN ×2 (17:25→23:42)
[2019-02-03 18:52] LABS: Troponin I 0.094 ng/mL (0.00-0.10)
[2019-02-03] MEDS ORDERED: INSULIN GLARGINE,HUM.REC.ANLOG 100 UNITS/ML VIAL SC SCH (21:00)
[2019-02-03] MEDS ORDERED: METOPROLOL SUCCINATE 50 MG TABLET.SA PO ONE (21:21)
[2019-02-03] MEDS: METOPROLOL SUCCINATE 100 MG TABLET.SA PO SCH (21:37)
[2019-02-04] MEDS: INSULIN LISPRO 100 UNITS/ML VIAL SC SCH ×2 (07:39→11:57)
[2019-02-04] MEDS: METOPROLOL SUCCINATE 100 MG TABLET.SA PO SCH (08:52)
[2019-02-04] MEDS: FUROSEMIDE 20 MG TABLET PO SCH (08:52)
[2019-02-04] MEDS: CLOPIDOGREL BISULFATE 75 MG TABLET PO SCH (08:52)
[2019-02-04] MEDS: SERTRALINE HCL 100 MG TABLET PO SCH (08:52)
[2019-02-04] MEDS ORDERED: LISINOPRIL 10 MG TABLET PO SCH (09:00)
[2019-02-04] MEDS ORDERED: CHOLECALCIFEROL 1,000 UNIT CAPSULE PO SCH (09:00)
[2019-02-04] MEDS ORDERED: SERTRALINE HCL 100 MG TABLET PO SCH (09:00)
[2019-02-04] MEDS ORDERED: ASPIRIN 325 MG TABLET.DR PO SCH (09:00)
[2019-02-04] MEDS ORDERED: METOPROLOL SUCCINATE 100 MG, METOPROLOL SUCCINATE 25 MG PO SCH ×2 (09:00)
[2019-02-04] MEDS ORDERED: METOPROLOL SUCCINATE 100 MG TABLET.SA PO SCH (09:00)
--- NOTE | 2019-02-04 09:41 | DS ---
(1) Ruled out for myocardial infarction Problem: Ruled-out (2) Chest pain due to CAD Problem: Resolved (3) Old non-ST elevation myocardial infarction (NSTEMI) Problem: Resolved (4) Diabetes 1.5, managed as type 2 Problem: Chronic (5) HTN (hypertension) Problem: Resolved (6) Anxiety Problem: Chronic Description of Stay: 63-year-old female was admitted to our facility due to chest pain in the retrosternal region that started while in bed in her shelter. Patient also complained of significant anxiety and requested angiolytics be administered to her, therefore she was treated with anxiolytics on a as needed basis during her stay. Patient was discharged from [facility] last after a non-STEMI and after a thorough cardiac evaluation, patient was discharged with medical management with Plavix and aspirin. During this current hospitalization patient underwent serial troponins which demonstrated elevated troponin which started on a downward trend but then slightly increased again, however clinically patient presents stable vitals and denies any recurrence of chest pain or shortness of breath. EKG demonstrated abnormal findings but nothing concerning for acute changes. Patient was treated with aspirin as well as nitroglycerin which she tolerated well. Therefore she is being discharged to [facility] where she is to resume all of her routine meds as well as aspirin, beta-sorin, and the Plavix prescribed by [facility]. Patient was instructed to follow-up with her PCP and farm rancher within a week. She is currently not on a statin due to intolerance of statin medications, however we will try an alternative to statin such as ezetimibe to see if she tolerates for optimal lipid levels. Procedures Performed: none Results and Findings: Lab Pending Results 02/03/19 06:20: WBC 8.2, RBC 4.24, Hgb 12.5, Hct 39.6, MCV 93.4, MCH 29.5, MCHC 31.6 L, RDW 13.6, Plt Count 280, MPV 10.5, Immature Gran % (Auto) 0.40, Immature Gran # (Auto) 0.03, Neutrophils % 74.4, Lymphocytes % 16.1 L, Monocytes % 6.2, Eosinophils % 2.3, Basophils % 0.6, Nucleated RBC % 0.0, Neutrophils # 6.1 H, Lymphocytes # 1.32 L, Monocytes # 0.5, Eosinophils # 0.2, Absolute Basophils 0.1 02/03/19 06:20: Sodium 136, Plasma Sodium 137, Potassium 4.4, Chloride 99, Carbon Dioxide 31.4, Anion Gap 10.0, BUN 25 H, Creatinine 0.91, Est GFR (Non-Af Amer) 67 D, BUN/Creatinine Ratio 27.5 H, Random Glucose 163 H, Calcium 9.5, Calcium Adj for Albumin 9.9, Total Bilirubin 0.5, AST 19, ALT 32, Alkaline Phosphatase 104, CK-MB (CK-2) 0.6, Troponin I 0.093, Total Protein 7.4, Albumin 3.1 L 02/03/19 12:25: Troponin I 0.072 02/03/19 18:24: CK-MB (CK-2) Less than 0.5, Troponin I 0.094 [address]charge Location: [facility] Disposition: SNF Condition: Fair Face to Face Encounter completed per [facility] Guidelines: No Level of Care: SNF Discharge Activity: Activity as tolerated Discharge Diet: Consistent carbs, Low salt, Low fat/chol Referrals: Cheyenne Gregg MD [Primary Care Provider] - Additional Patient Instructions (free text): Pt is from [facility] please call and fax discharge orders to them. Prescriptions (Any new or edited meds): LORazepam [Ativan] 0.5 mg PO TID PRN 10 Days #30 tab PRN Reason: Anxiety Complete Home Medications List: Complete Home Medication List: Albuterol Sulfate/Ipratropium [Duoneb 2.5-0.5MG/3ML Soln] 3 ml IH QID PRN #30 nebu 09/22/16 cholecalciferol (vitamin D3) 2,000 unit capsule 2,000 unit PO DAILY cap 05/17/18 insulin syringe U-100 with needle 1/2 mL 31 gauge x 15/64" See Dose Instructions .ROUTE .MEDSUPPLY #100 ea 07/10/18 pen needle, diabetic 32 gauge x 1/4" See Dose Instructions .ROUTE .MEDSUPPLY #100 ea 07/13/18 blood sugar diagnostic strips See Dose Instructions .ROUTE .MEDSUPPLY #100 ea 12/19/18 Acetaminophen 500 mg PO TID PRN 02/03/19 Aspirin [Aspirin EC] 325 mg PO DAILY 02/03/19 Atorvastatin Calcium [Lipitor] 40 mg PO DAILY 02/03/19 Clopidogrel Bisulfate [Plavix] 75 mg PO DAILY 02/03/19 Furosemide [Lasix] 20 mg PO DAILY 02/03/19 Insulin Glargine,Hum.rec.anlog [Basaglar Travisrichard U-100] 35 unit SUB-Q HS 02/03/19 Liraglutide [Victoza 2-Clay] 1.8 mg SUB-Q 1300 02/03/19 Lisinopril [Prinivil] 10 mg PO DAILY 02/03/19 Metoprolol Succinate [Toprol Xl] 100 mg PO DAILY 02/03/19 Sertraline HCl [Zoloft] 100 mg PO DAILY 02/03/19 metFORMIN HCL [Metformin HCl] 1,000 mg PO BID 02/03/19 LORazepam [Ativan] 0.5 mg PO TID PRN 10 Days #30 tab 02/04/19 Lisinopril [Zestril] 10 mg PO DAILY tab 02/04/19
[2019-02-04] MEDS: ACETAMINOPHEN 500 MG TABLET PO PRN (10:29)
[2019-02-04] MEDS ORDERED: Liraglutide [Victoza 2-Pak] 1.8 MG Sub-Q SCH (13:00)
[2019-02-04 16:31] VITALS: BP 118/72
== END 2019-02-04 17:35 ==
LOC: ER 05:22 → MS 05:22
PROVIDERS: ADMIT Family Medicine; ATTEND Family Medicine
CPT/HCPCS: 36415; 71010; 71045; 80053; 82553; 84484; 85025; 87081; 93005; 96372; 96374; 99285; G0378